=== PATIENT | male | born 1950 | race Caucasian/White ===

== ENCOUNTER → 2017-01-24 | Outpatient (CLI) | payer MEDICARE, OTHER ==
--- NOTE | 2017-01-28 09:28 | OR ---
ADMIT: 01/24/2017 RM/LOC: [facility] MR#: [id number] [address] [address] [place] [address] [place], [place] [id number] Operative/Delivery Room Report SEX: M AGE: 66 : 1950 SURGERY DATE: 01/24/2017 SURGEON: John Almazan MD PREOPERATIVE DIAGNOSIS: Left hip arthritis. POSTOPERATIVE DIAGNOSIS: Left hip arthritis. PROCEDURE: Left hip fluoroscopic-guided an injection intra-articular. INDICATION: Asa has got left hip arthritis, wanted to try and do an injection to see if we could get him relief and he is here for that. DESCRIPTION OF PROCEDURE: He was identified and consent was obtained. We then prepped the left hip. Fluoroscopy was brought in. Introduced a spinal needle down intra-articularly. Once it was confirmed to be intra-articular injected a solution of 8 of lidocaine and 2 of Kenalog 40 mg/mL. He tolerated that very well. I will see him back in about three months. We can repeat that or discuss hip replacement if that does not work. John Almazan MD/ vdg JOB #: [id number] CC: John Almazan, Attending Physician NO FAMILY PHYSICIAN, Family Physician
== END | disposition home or self-care (01) ==
LOC: RAD.S 09:07
DX: M25.552 Pain in left hip (principal); M16.12 Unilateral primary osteoarthritis, left hip

== ENCOUNTER → 2017-05-16 | Outpatient (CLI) | payer MEDICARE, OTHER ==
--- NOTE | 2017-05-25 08:45 | OR ---
ADMIT: 05/16/2017 RM/LOC: [facility] MR#: [id number] [address] [address] [place] [address] [facility] [place] [id number] Operative/Delivery Room Report SEX: M AGE: 67 : 1950 SURGERY DATE: 05/16/2017 SURGEON: John Almazan MD PREOPERATIVE DIAGNOSIS: Left hip arthritis. POSTOPERATIVE DIAGNOSIS: Left hip arthritis. PROCEDURE PERFORMED: Left fluoroscopic guided intra-articular hip injection. Injection was with 8 of lidocaine and 2 of Kenalog. COMPLICATIONS: None. INDICATION: Venessa has [id number] hip arthritis. I gave him an injection about three months ago. He said it helped for about 1-2 months pretty well. It is starting to wear off pretty good now so he is here for another one. PROCEDURE: The patient was identified. We brought the x-ray in, identified the hip, and then put the needle in. I confirmed that was intra-articular and I injected with 8 of lidocaine and 2 of Kenalog, removed that, and then we will see him back in about three months for repeat injection or to discuss hip arthroplasty. John Almazan MD/ njv JOB #: [id number] CC: John Almazan, Attending Physician NO FAMILY PHYSICIAN, Family Physician
== END | disposition home or self-care (01) ==
LOC: RAD.S 09:57
PROC: 0S9B3ZZ Drainage of Left Hip Joint, Percutaneous Approach (ICD-10-PCS; principal; 2017-05-16)
DX: M25.552 Pain in left hip (principal); M16.12 Unilateral primary osteoarthritis, left hip